=== PATIENT | male | born 1960 | race Caucasian/White ===

== ENCOUNTER 2018-08-29 15:57 | Emergency (ER) | payer MEDICAID ==
[2018-08-29] MEDS: SOD CHLORIDE 0.9% 1,000 ML IV (19:44)
[2018-08-29] MEDS: ONDANSETRON 4 MG INJ IV (19:44)
[2018-08-29] MEDS: morphine 2 MG INJ IV (19:45)
[2018-08-29 20:09] LABS: ADD MAN DIFF? NO
[2018-08-29 20:17] LABS: BASOPHILS % 0.2 % (0.0-2.0); EOSINOPHILS % 0.2 % (0.0-7.0); HEMATOCRIT 45.5 % (42.0-52.0); HEMOGLOBIN 15.5 g/dl (14.0-18.0); LYMPHOCYTES # 1.5 10^3/ul (0.8-2.9); LYMPHOCYTES % 16.5 % (15.0-51.0); MEAN CORPUSCULAR HGB CONC 34.1 g/dl (32.0-37.0); MEAN PLATELET VOLUME 8.5 fl (7.4-10.4); MONOCYTE # 0.6 10^3/ul (0.3-0.9); MONOCYTES % 6.1 % (0.0-11.0); NEUTROPHIL # 6.9 10^3/ul (1.6-7.5); NEUTROPHILS % 76.6 % (39.0-77.0); PLATELET COUNT 245 10^3/UL (140-415); RED BLOOD COUNT 5.17 10^6/ul (4.70-6.10); RED CELL DISTRIBUTION WIDTH 11.1 % (11.5-14.5)
[2018-08-29 20:34] LABS: ANION GAP 10 (5-13); BLOOD UREA NITROGEN 13 mg/dl (7-20); CALCIUM 8.9 mg/dl (8.4-10.2); CARBON DIOXIDE 25 mmol/L (21-31); CHLORIDE 105 mmol/L (97-110); CREATININE 0.77 mg/dl (0.61-1.24); Estimated GFR > 60 mL/min (>60); GLUCOSE 100 mg/dl (70-220); POTASSIUM 4.9 mmol/L (3.5-5.1); SODIUM 140 mmol/L (135-144)
[2018-08-29 20:37] LABS: INR 0.87; PROTIME 11.9 Sec (11.9-14.9); PT RATIO 0.9
[2018-08-29] MEDS: SOD CHLORIDE 0.9% 100 ML (21:25)
[2018-08-29] MEDS: IOHEXOL 300MG/ML 150 ML BTL (21:25)
== END 2018-08-29 23:16 | disposition home or self-care (01) ==
LOC: E/R 15:57
DX: S13.9XXA Sprain of joints and ligaments of unspecified parts of neck, initial encounter (principal); S20.219A Contusion of unspecified front wall of thorax, initial encounter; S30.1XXA Contusion of abdominal wall, initial encounter; S90.32XA Contusion of left foot, initial encounter; S90.02XA Contusion of left ankle, initial encounter; V03.10XA Pedestrian on foot injured in collision with car, pick-up truck or van in traffic accident, initial encounter
CPT/HCPCS: 71260; 72125; 73030-RT; 73080-RT; 73110-RT; 73610; 73630-LT; 74177; 80048; 85025; 85610; 85730; 96374; 96375; 99285-25